=== PATIENT | male | born 1985 | race Caucasian/White ===

== ENCOUNTER → 2016-09-29 | Outpatient (CLI) | payer OTHER ==
[2016-09-29 15:40] LABS: HEMATOCRIT 49.2 % (42.0-52.0); HEMOGLOBIN 17.1 g/dL (14.0-18.0); MEAN CORPUSCULAR HEMOGLOBIN 30.6 PG (27-31); MEAN CORPUSCULAR HGB CONC 34.8 g/dL (33-37); MEAN PLATELET VOLUME 10.6 FL (7.4-12.2); RDW COEFFICIENT OF VARIATION 12.9 % (11.5-14.5); RED BLOOD COUNT 5.58 10^6/uL (4.70-6.10); WHITE BLOOD COUNT 7.57 10^3/uL (4.8-10.8)
[2016-10-01 10:35] LABS: RHEUMATOID FACTOR <15 IU/mL (<15)
[2016-10-01 13:36] LABS: HLA-B27 INTERPRETATION SEE COMMENTS (()); HLA-B27 RESULT Negative (())
[2016-10-01 17:39] LABS: CYCLIC CITRULLINATED PEPTIDEAB <15.6 U (())
== END ==
LOC: LAB 14:56
PROVIDERS: ATTEND Orthopaedic Surgery
DX: M25.461 Effusion, right knee (principal); F17.210 Nicotine dependence, cigarettes, uncomplicated
CPT/HCPCS: 36415; 85027; 85652; 86140; 86200; 86431; 86812

== ENCOUNTER 2017-01-09 09:56 | Emergency (ER) | payer OTHER ==
[2017-01-09] MEDS ORDERED: KETOROLAC 15 MG/1 ML VIAL IVP ONE (10:08)
[2017-01-09] MEDS ORDERED: ONDANSETRON 4 MG/2 ML VIAL IVP ONE (10:08)
[2017-01-09] MEDS ORDERED: Sodium Chloride 0.9% 1,000 ML PRIMARY IV ONE (10:08)
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
[2017-01-09 10:19] VITALS: RESP 18; TEMP 98.1
[2017-01-09 10:42] LABS: BLOOD UREA NITROGEN 10 mg/dL (7-22); C-REACTIVE PROTEIN 0.7 mg/dL (0.0-0.9); CALCIUM 9.4 mg/dL (8.7-10.7); EST GLOMERULAR FILTRATION > 60 (>60 ml/min/1.73m(2)); MAGNESIUM 1.8 mg/dL (1.6-2.4); SERUM ALBUMIN 4.5 g/dL (3.5-4.8); URIC ACID 9.3 mg/dl (3.8-8.5)
[2017-01-09 10:46] LABS: BASOPHILS # (AUTO) 0.03 10*3/UL; BASOPHILS % (AUTO) 0.3 % (0-1); EOSINOPHILS # (AUTO) 0.05 10*3/UL; EOSINOPHILS % (AUTO) 0.6 % (0-8); HEMATOCRIT 48.1 % (42.0-52.0); HEMOGLOBIN 16.8 g/dL (14.0-18.0); LYMPHOCYTES # (AUTO) 0.67 10*3/uL; MEAN CORPUSCULAR HEMOGLOBIN 32.1 PG (27-31); MEAN CORPUSCULAR HGB CONC 34.9 g/dL (33-37); MEAN PLATELET VOLUME 10.9 FL (7.4-12.2); MONOCYTES # (AUTO) 0.46 10*3/UL (0.3-0.8); MONOCYTES % (AUTO) 5.2 % (5-15); NEUTROPHILS # (AUTO) 7.67 10*3/UL; NEUTROPHILS % (AUTO) 86.3 % (50-80); RED BLOOD COUNT 5.23 10^6/uL (4.70-6.10)
[2017-01-09 10:50] LABS: PLATELET MORPHOLOGY COMMENT NORMAL MORPHOLOGY (NORM); RBC MORPHOLOGY COMMENT NORMAL MORPHOLOGY (NORM); WBC MORPHOLOGY COMMENT NORMAL MORPHOLOGY (NORM)
[2017-01-09 12:12] LABS: BILIRUBIN,URINE NEGATIVE (NEG); COLOR,URINE YELLOW; GLUCOSE, URINE (UA) NEGATIVE (NEG); NITRATE,URINE NEGATIVE (NEG); OCCULT BLOOD,URINE Trace-intact (NEG); PROTEIN,URINE NEGATIVE (NEG); UROBILINOGEN,URINE 0.2 EU/dL (0.2)
[2017-01-09 12:32] LABS: CLARITY,URINE CLEAR (CLEAR)
[2017-01-09 12:33] LABS: RBC,URINE 0-3 /hpf; SQUAMOUS EPITHELIAL CELL,UR RARE; URINE SAMPLE TYPE CLEAN CATCH URINE
[2017-01-09 12:53] LABS: ERYTHROCYTE SEDIMENTATION RATE 2 MM/HR (0-15)
--- NOTE | 2017-01-09 15:54 | DI ---
VENOUS DOPPLER ULTRASOUND OF THE RIGHT LOWER EXTREMITY, 01/09/2017 10:08 AM: Clinical History: Swollen, painful right foot. Previous Exam: None. Technique: 2D real-time imaging is supplemented with color Doppler ultrasound. Compression and augmen tation maneuvers were performed. The deep venous system from the groin to the popliteal fossa is norm al. The greater saphenous vein is normal. Scans over the ankle joint show edema within the subcutaneo us fat and also a small collection of fluid deep to the fat. Readin. Negative venous Doppler ultrasound of the right lower extremity. 2. There is a small amount of fluid at the level of the ankle joint superficial to the extensor tend ons and deep to the subcutaneous fat.
--- NOTE | 2017-01-09 15:54 | DI ---
RIGHT FOOT, 01/09/2017 10:08 AM: Clinical History: Right foot pain and swelling. There is no history of trauma. Previous Exam: None at this facility. 3 views are submitted. There is soft tissue swelling dorsal to the tarsal bones on the lateral projec tion. There is no ankle effusion. No fracture or dislocation is identified. No radiopaque foreign bod y or soft tissue gas are identified. The joint spaces are intact. Reading: Except for soft tissue swelling, the exam is normal.
== END 2017-01-09 13:10 | disposition home or self-care (01) ==
LOC: ER 09:56
DX: M10.9 Gout, unspecified (principal); R22.41 Localized swelling, mass and lump, right lower limb
CPT/HCPCS: 73630; 80053; 81001; 81003; 83735; 84550; 85025; 85652; 86140; 93971; 96361; 96374; 96375; 99283; J1885; J7030